=== PATIENT | male | born 1995 ===

== ENCOUNTER 2024-10-18 13:28 | Emergency (ER) | payer MEDICAID, SELFPAY ==
[2024-10-18 13:33] VITALS: BP 109/55; PULSE 76; RESP 18; TEMP 36.4; O2SAT 98
[2024-10-18 14:05] VITALS: BP 109/55; PULSE 76; RESP 18; TEMP 36.4; O2SAT 98
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
== END 2024-10-18 14:05 | disposition home or self-care (01) ==
PROVIDERS: Emergency Provider Emergency Medicine
DX: R68.84 Jaw pain (principal); Z59.00 Homelessness unspecified
CPT/HCPCS: 99282